=== PATIENT | male | born 1975 | race Caucasian/White ===

== ENCOUNTER 2018-03-14 17:49 | Emergency (ER) | payer SELFPAY ==
[~2018-03-14] VITALS: Ht 180.3 cm; Wt 86.2 kg
[2018-03-14 18:30] LABS: BILIRUBIN,URINE NEGATIVE (NEG); CLARITY,URINE CLOUDY; COLOR,URINE YELLOW; NITRITE,URINE NEGATIVE (NEG); PROTEIN,URINE NEGATIVE (NEG-TRACE); UROBILINOGEN,URINE 0.2 mg/dL (0.2 mg/dL)
[2018-03-14 18:55] LABS: BACTERIA,URINE FEW /HPF (0-FEW); RBC,URINE 0 /HPF (0-2); SQUAMOUS EPITHELIAL CELL,UR OCC /LPF; WBC,URINE OCC /HPF (0-4)
[2018-03-14] MEDS: KETOROLAC 60 MG/2 ML INJ. IM ONE (20:07)
[2018-03-14] MEDS: DEXAMETHASONE 4 MG TABLET PO ONE (20:07)
[2018-03-14] MEDS ORDERED: IBUP-1007 PO (20:41)
--- NOTE | 2018-03-14 20:41 | PHYS DOC ---
Past Medical History Past Medical History: DVT Past Surgical History: Other Additional Past Surgical Histo: R HAND TENDONS REPAIR Additional Information: 3 TO 4 PPD, IF HAS THE MONEY Alcohol Use: None Drug Use: None Adult General Chief Complaint Chief Complaint: BACK PAIN OR INJURY HPI HPI Patient is a 42 year old male who presents with wearing a 192lb back pack with hiking and tripping over a log and fall into a tree 3 days ago. Review of Systems Review of Systems Constitutional: Denies fever or chills [] Eyes: Denies change in visual acuity, redness, or eye pain [] HENT: Denies nasal congestion or sore throat [] Respiratory: Denies cough or shortness of breath [] Cardiovascular: No additional information not addressed in HPI [] GI: Denies abdominal pain, nausea, vomiting, bloody stools or diarrhea [] : Denies dysuria or hematuria [] Musculoskeletal: Lumbar back pain with sharp tingling that goes down the right leg. Denies back pain or joint pain [] Integument: Denies rash or skin lesions [] Neurologic: Denies headache, focal weakness or sensory changes [] Endocrine: Denies polyuria or polydipsia [] All other systems were reviewed and found to be within normal limits, except as documented in this note. Current Medications Current Medications Current Medications Medications (Trade) Dose Ordered Sig/[facility] Start Time Stop Time Status Last Admin Dose Admin Dexamethasone (Decadron) 4 mg 1X ONCE 03/14/18 20:00 03/14/18 20:01 DC 03/14/18 20:07 4 MG Ketorolac Tromethamine (Toradol Im) 60 mg 1X ONCE 03/14/18 20:00 03/14/18 20:01 DC 03/14/18 20:07 60 MG Allergies Allergies Allergies Coded Allergies Type Severity Reaction Last Updated Verified Latex, Natural Rubber Allergy Intermediate 03/14/18 Yes Penicillins Allergy Intermediate 03/14/18 Yes Sulfa (Sulfonamide Antibiotics) Allergy Intermediate 03/14/18 Yes Physical Exam Physical Exam Constitutional: Well developed, well nourished, no acute distress, non-toxic appearance. [] HENT: Normocephalic, atraumatic, bilateral external ears normal, oropharynx moist, no oral exudates, nose normal. [] Eyes: PERRLA, EOMI, conjunctiva normal, no discharge. [] Neck: Normal range of motion, no tenderness, supple, no stridor. [] Cardiovascular:Heart rate regular rhythm, no murmur [] Lungs & Thorax: Bilateral breath sounds clear to auscultation [] Abdomen: Bowel sounds normal, soft, no tenderness, no masses, no pulsatile masses. [] Skin: Warm, dry, no erythema, no rash. [] Back: Lumbar tenderness to bilateral sides of lumbar spine. No tenderness, no CVA tenderness. [] Extremities: No tenderness, no cyanosis, no clubbing, ROM intact, no edema. [] Neurologic: Alert and oriented X 3, normal motor function, normal sensory function, no focal deficits noted. [] Psychologic: Affect normal, judgement normal, mood normal. [] Current Patient Data Vital Signs Vital Signs Date Time Temp Pulse Resp B/P (MAP) Pulse Ox O2 Delivery O2 Flow Rate FiO2 03/14/18 21:00 106 18 138/88 (105) 96 Room Air 03/14/18 19:40 98.7 98.7 Lab Values Laboratory Tests Test 03/14/18 18:23 Urine Collection Type Void Urine Color Yellow Urine Clarity Cloudy Urine pH 6.0 Urine Specific Gerber 1.010 Urine Protein Negative mg/dL (NEG-TRACE) Urine Glucose (UA) Negative mg/dL (NEG) Urine Ketones (Stick) Negative mg/dL (NEG) Urine Blood Negative (NEG) Urine Nitrite Negative (NEG) Urine Bilirubin Negative (NEG) Urine Urobilinogen Dipstick 0.2 mg/dL (0.2 mg/dL) Urine Leukocyte Esterase Negative (NEG) Urine RBC 0 /HPF (0-2) Urine WBC Occ /HPF (0-4) Urine Squamous Epithelial Cells Occ /LPF Urine Bacteria Few /HPF (0-FEW) EKG EKG [] Radiology/Procedures Radiology/Procedures lumbar[] Impressions: No acute findings Course & Med Decision Making Course & Med Decision Making Patient is a 42 year old male who presents with wearing a 192lb back pack with hiking and tripping over a log and fall into a tree 3 days ago. Upon examination patient has bilateral lower back tenderness to the sides of his lumbar spine. Patient states that the pain shoots sharp tingling pain down his right leg. Patient states the only way he can get comfortable is with laying flat on his back. Patient rates his pain a 8/10. Patient sates he is allergic to PCN, Sulfa, And Latex. Patietn is given Toradol IM and Dexamethasone in the ED. Patient lumbar x-ray is normal and was read by Dr Ambrocio. Patient is to take ibuprofen at home for pain and to follow up with his primary care. [] Dragon Disclaimer Dragon Disclaimer This electronic medical record was generated, in whole or in part, using a voice recognition dictation system. Departure Departure Impression: Primary Impression: Sciatica Additional Impression: Sciatica associated with disorder of lumbar spine Disposition: HOME, SELF-CARE Condition: STABLE Referrals: NO PCP (PCP) Patient Instructions: Sciatica Additional Instructions: Take Ibuprofen for pain. Follow up with Primary care. Scripts Ibuprofen (IBUPROFEN) 600 Mg Tablet 600 MG PO PRN Q6HRS PRN for INFLAMMATION for 5 Days, TAB Prov: NIKKO ROSSI APRN 03/14/18 Problem Qualifiers Primary Impression: Sciatica Laterality: right Qualified Codes: M54.31 - Sciatica, right side NIKKO ROSSI APRN Mar 14, 2018 20:41
[2018-03-14 21:00] VITALS: BP 138/88
--- NOTE | 2018-03-14 23:32 | RAD ---
Indication: Trauma. Back pain. TECHNIQUE: 3 views of the lumbar spine COMPARISON: None FINDINGS: There are 5 lumbar lumbar spine is in normal anatomic alignment. No compression deformities. No intervertebral disc space narrowing or facet arthropathy. SI joints within normal limits. IMPRESSION: No compression deformities. Electronically signed by: Oseas Choi DO (03/14/2018 11:29 PM) [facility]
[2018-03-15] MEDS ORDERED: NAPR-514 PO (14:00)
[2018-03-15] MEDS ORDERED: ORPH100T PO (14:00)
== END 2018-03-14 21:00 | disposition home or self-care (01) ==
LOC: ER 17:49
DX: M54.41 Lumbago with sciatica, right side (principal); R20.2 Paresthesia of skin; F17.200 Nicotine dependence, unspecified, uncomplicated; Z86.718 Personal history of other venous thrombosis and embolism; Z88.0 Allergy status to penicillin; Z88.2 Allergy status to sulfonamides; Z91.040 Latex allergy status
CPT/HCPCS: 72100; 81001; 96372; 99285; J1885; J8540

== ENCOUNTER 2018-03-15 12:51 | Emergency (ER) | payer SELFPAY ==
[~2018-03-15] VITALS: Ht 180.3 cm; Wt 86.2 kg
[~2018-03-15 12:51] MED LIST: IBUP-1007 PO
[2018-03-15 13:05] VITALS: BP 14/87
[2018-03-15] MEDS: ORPHENADRINE CITRATE 60 MG/2 ML VIAL. IM ONE (13:49)
[2018-03-15] MEDS: KETOROLAC 60 MG/2 ML INJ. IM ONE (13:50)
[2018-03-15] MEDS ORDERED: ORPH100T PO (14:00)
[2018-03-15] MEDS ORDERED: NAPR-514 PO (14:00)
--- NOTE | 2018-03-15 14:01 | PHYS DOC ---
Past Medical History Past Medical History: DVT Past Surgical History: Other Additional Past Surgical Histo: R HAND TENDONS REPAIR Alcohol Use: None Drug Use: None Adult General Chief Complaint Chief Complaint: LOWER BACK PAIN OR INJURY HPI HPI Patient is a 42 year old [f__sex] who presents with [] Review of Systems Review of Systems Constitutional: Denies fever or chills [] Eyes: Denies change in visual acuity, redness, or eye pain [] HENT: Denies nasal congestion or sore throat [] Respiratory: Denies cough or shortness of breath [] Cardiovascular: No additional information not addressed in HPI [] GI: Denies abdominal pain, nausea, vomiting, bloody stools or diarrhea [] : Denies dysuria or hematuria [] Musculoskeletal: Denies back pain or joint pain [] Integument: Denies rash or skin lesions [] Neurologic: Denies headache, focal weakness or sensory changes [] Endocrine: Denies polyuria or polydipsia [] All other systems were reviewed and found to be within normal limits, except as documented in this note. Current Medications Current Medications Current Medications Medications (Trade) Dose Ordered Sig/Dustin Start Time Stop Time Status Last Admin Dose Admin Ketorolac Tromethamine (Toradol Im) 30 mg 1X ONCE 03/15/18 13:30 03/15/18 13:31 DC 03/15/18 13:50 30 MG Orphenadrine Citrate (Norflex) 60 mg 1X ONCE 03/15/18 13:30 03/15/18 13:31 DC 03/15/18 13:49 60 MG Allergies Allergies Allergies Coded Allergies Type Severity Reaction Last Updated Verified Latex, Natural Rubber Allergy Intermediate 03/14/18 Yes Penicillins Allergy Intermediate 03/14/18 Yes Sulfa (Sulfonamide Antibiotics) Allergy Intermediate 03/14/18 Yes Physical Exam Physical Exam Constitutional: Well developed, well nourished, no acute distress, non-toxic appearance. [] HENT: Normocephalic, atraumatic, bilateral external ears normal, oropharynx moist, no oral exudates, nose normal. [] Eyes: PERRLA, EOMI, conjunctiva normal, no discharge. [] Neck: Normal range of motion, no tenderness, supple, no stridor. [] Cardiovascular:Heart rate regular rhythm, no murmur [] Lungs & Thorax: Bilateral breath sounds clear to auscultation [] Abdomen: Bowel sounds normal, soft, no tenderness, no masses, no pulsatile masses. [] Skin: Warm, dry, no erythema, no rash. [] Back: No tenderness, no CVA tenderness. [] Extremities: No tenderness, no cyanosis, no clubbing, ROM intact, no edema. [] Neurologic: Alert and oriented X 3, normal motor function, normal sensory function, no focal deficits noted. [] Psychologic: Affect normal, judgement normal, mood normal. [] Current Patient Data Vital Signs Vital Signs Date Time Temp Pulse Resp B/P (MAP) Pulse Ox O2 Delivery O2 Flow Rate FiO2 03/15/18 13:05 98.5 109 18 14/87 (63) 97 Room Air 98.5 EKG EKG [] Radiology/Procedures Radiology/Procedures [] Course & Med Decision Making Course & Med Decision Making Pertinent Labs and Imaging studies reviewed. (See chart for details) [] Dragon Disclaimer Dragon Disclaimer This electronic medical record was generated, in whole or in part, using a voice recognition dictation system. Departure Departure Impression: Primary Impression: Sciatica Disposition: HOME, SELF-CARE Condition: STABLE Referrals: NO PCP (PCP) Patient Instructions: Sciatica, [id number] Additional Instructions: Fill prescriptions and use as directed. Activity as tolerated. Follow-up with your primary care doctor in 1-2 days. Return to the emergency room if your symptoms worsen. Scripts Naproxen (NAPROXEN) 500 Mg Tablet 1 TAB PO BID for 10 Days, #20 TAB 0 Refills Prov: ANTONINO QUIROGA APRN 03/15/18 Orphenadrine Citrate (ORPHENADRINE CITRATE) 100 Mg Tablet.er 1 TAB PO BID for 10 Days, #20 TAB 0 Refills Prov: ANTONINO QUIROGA APRN 03/15/18 Problem Qualifiers Primary Impression: Sciatica Laterality: right Qualified Codes: M54.31 - Sciatica, right side ANTONINO QUIROGA APRN Mar 15, 2018 14:01
== END 2018-03-15 14:25 | disposition home or self-care (01) ==
LOC: ER 12:51
DX: M54.31 Sciatica, right side (principal); Z86.718 Personal history of other venous thrombosis and embolism; Z88.0 Allergy status to penicillin; Z88.2 Allergy status to sulfonamides; Z91.040 Latex allergy status
CPT/HCPCS: 96372; 99284; J1885; J2360

== ENCOUNTER 2019-04-23 18:11 | Emergency (ER) | payer SELFPAY ==
[~2019-04-23] VITALS: Ht 180.3 cm; Wt 86.2 kg
[~2019-04-23 18:11] MED LIST changes: +NAPR-514 PO; +ORPH100T PO
[2019-04-23] MEDS ORDERED: AZIT250T PO (18:50)
--- NOTE | 2019-04-23 18:50 | PHYS DOC ---
Past Medical History Past Medical History: Bipolar, DVT Past Surgical History: Other Additional Past Surgical Histo: R HAND TENDONS REPAIR Alcohol Use: None Drug Use: None Adult General Chief Complaint Chief Complaint: SORE THROAT [facility] HPI Patient is a 43 year old male who presents with complaining of sore throat. Patient states he woke up this morning he has had sore throat since he woke up this morning worse with swallowing. Patient complaining of marked subjective fever without headache, sick contact, nasal congestion and cough and shortness of breath. Patient denies nausea and vomiting and myalgia. Patient states he took ibuprofen at home and his pain is getting better. Review of Systems Review of Systems Constitutional: Denies chills, reports subjective fever [] Eyes: Denies change in visual acuity, redness, or eye pain [] HENT: Denies nasal congestion, reports sore throat [] Respiratory: Denies cough or shortness of breath [] Cardiovascular: No additional information not addressed in HPI [] GI: Denies abdominal pain, nausea, vomiting, bloody stools or diarrhea [] : Denies dysuria or hematuria [] Musculoskeletal: Denies back pain or joint pain [] Integument: Denies rash or skin lesions [] Neurologic: Denies headache, focal weakness or sensory changes [] Endocrine: Denies polyuria or polydipsia [] All other systems were reviewed and found to be within normal limits, except as documented in this note. Allergies Allergies Allergies Coded Allergies Type Severity Reaction Last Updated Verified Latex, Natural Rubber Allergy Intermediate 03/14/18 Yes Penicillins Allergy Intermediate 03/14/18 Yes Sulfa (Sulfonamide Antibiotics) Allergy Intermediate 03/14/18 Yes Physical Exam Physical Exam Constitutional: Well developed, well nourished, mild distress, non-toxic appearance. [] HENT: Normocephalic, atraumatic. Tympanic membrane normal, oral mucosa is moist, mild erythema and erythema of bilateral without exudate Eyes: PERRLA, EOMI, conjunctiva normal, no discharge. [] Neck: Normal range of motion, no tenderness, supple, no stridor. [] Cardiovascular:Heart rate regular rhythm, no murmur [] Lungs & Thorax: Bilateral breath sounds clear to auscultation [] Extremities: No tenderness, no cyanosis, no clubbing, ROM intact, no edema. [] Neurologic: Alert and oriented X 3, no focal deficits noted. [] Psychologic: Affect normal, judgement normal, mood normal. [] EKG EKG [] Radiology/Procedures Radiology/Procedures [] Course & Med Decision Making Course & Med Decision Making discharge: I've spoken with the patient and/or caregivers. I've explained the patient's condition, diagnosis and treatment plan based on information available to me at this time. I've answered the patient's and/or caregivers questions and addressed any concerns. The patient and/or caregivers have a good understanding the patient's diagnosis, condition and treatment plan as can be expected at this point. Vital signs have been stabilized. The patient's condition is stable for discharge from the emergency department. The patient will pursue further outpatient evaluation with her primary care provider or other designated consulting physician as outlined in the discharge instructions. Patient and/or caregivers are agreeable to this plan of care and follow-up instructions have been explained in detail. The patient and/or caregivers have received these instructions in written format and expressed understanding of these discharge instructions. The patient and her caregivers are aware that if any significant change in condition or worsening of symptoms should prompt him to immediately return to this of the closest emergency depa rtment. If an emergent department is not readily available I would encourage him to call 911. Michellon Disclaimer Michellon Disclaimer This electronic medical record was generated, in whole or in part, using a voice recognition dictation system. Departure Departure Impression: Primary Impression: Acute pharyngitis Disposition: HOME, SELF-CARE (at 1848) Condition: STABLE Referrals: NO PCP (PCP) Patient Instructions: Viral and Bacterial Pharyngitis Additional Instructions: Drink plenty of liquids Follow-up with your primary care physician in 3-5 days Return to ER if not getting better Continue home ibuprofen as needed for pain Scripts Azithromycin (ZITHROMAX) 250 Mg Tablet 1 PKG PO UD for infection, #1 PKG Prov: TRACI SHEIKH MD 04/23/19 Problem Qualifiers Primary Impression: Acute pharyngitis Pharyngitis/tonsillitis etiology: unspecified etiology Qualified Codes: J02.9 - Acute pharyngitis, unspecified TRACI SHEIKH MD Apr 23, 2019 18:50
[2019-04-23 18:57] VITALS: BP 140/93
== END 2019-04-23 19:02 | disposition home or self-care (01) ==
LOC: ER 18:11
DX: J02.9 Acute pharyngitis, unspecified (principal); R50.9 Fever, unspecified; R06.02 Shortness of breath; R09.81 Nasal congestion; F31.9 Bipolar disorder, unspecified; Z88.0 Allergy status to penicillin; Z88.2 Allergy status to sulfonamides; Z91.040 Latex allergy status
CPT/HCPCS: 99283

== ENCOUNTER 2019-08-20 10:15 | Emergency (ER) | payer SELFPAY ==
[~2019-08-20] VITALS: Ht 180.3 cm; Wt 91.4 kg
[~2019-08-20 10:15] MED LIST changes: +AZIT250T PO
[2019-08-20 10:17] VITALS: BP 133/73
[2019-08-20] MEDS ORDERED: HYDROcodone/APAP 5/325MG 1 TAB TABLET PO ONE (10:30)
[2019-08-20] MEDS ORDERED: DEXAMETHASONE 4 MG TABLET PO SCH (10:30)
[2019-08-20] MEDS ORDERED: AZIT250T6 PO (10:34)
--- NOTE | 2019-08-20 10:34 | PHYS DOC ---
Past Medical History Past Medical History: Bipolar, DVT Past Surgical History: Other Additional Past Surgical Histo: R HAND TENDONS REPAIR Smoking Status: Current Every Day Smoker Alcohol Use: None Drug Use: None Adult General Chief Complaint Chief Complaint: FEVER HPI HPI Patient is a 44 year old male who presents with 2 days of a sore throat, fever and right ear pain. Patient rates his pain a 10 out of 10. Review of Systems Review of Systems Constitutional: fever or chills [] HENT: Denies nasal congestion. +sore throat and ear pain. [] All other systems were reviewed and found to be within normal limits, except as documented in this note. Current Medications Current Medications Current Medications Medications (Trade) Dose Ordered Sig/Dsutin Start Time Stop Time Status Last Admin Dose Admin Acetaminophen/ Hydrocodone Bitart (Lortab 5/325) 1 tab 1X ONCE 08/20/19 10:30 08/20/19 10:31 DC Dexamethasone (Decadron) 8 mg 1X 08/20/19 10:30 Allergies Allergies Allergies Coded Allergies Type Severity Reaction Last Updated Verified Latex, Natural Rubber Allergy Intermediate 03/14/18 Yes Penicillins Allergy Intermediate 03/14/18 Yes Sulfa (Sulfonamide Antibiotics) Allergy Intermediate 03/14/18 Yes Physical Exam Physical Exam Constitutional: Well developed, well nourished, no acute distress, non-toxic appearance. [] HENT: Normocephalic, atraumatic, bilateral external ears normal, oropharynx moist, no oral exudates, nose normal. Right ear reddened. Throat red with 1+ bilateral tonsils. [] Eyes: PERRLA, EOMI, conjunctiva normal, no discharge. [] Neck: Normal range of motion, no tenderness, supple, no stridor. [] Cardiovascular:Heart rate regular rhythm, no murmur [] Lungs & Thorax: Bilateral breath sounds clear to auscultation [] Abdomen: Bowel sounds normal, soft, no tenderness, no masses, no pulsatile masses. [] Skin: Warm, dry, no erythema, no rash. [] Back: No tenderness, no CVA tenderness. [] Extremities: No tenderness, no cyanosis, no clubbing, ROM intact, no edema. [] Neurologic: Alert and oriented X 3, normal motor function, normal sensory fun ction, no focal deficits noted. [] Psychologic: Affect normal, judgement normal, mood normal. [] Current Patient Data Vital Signs Vital Signs Date Time Temp Pulse Resp B/P (MAP) Pulse Ox O2 Delivery O2 Flow Rate FiO2 08/20/19 10:17 97.8 96 19 133/73 (93) 99 Room Air 97.8 EKG EKG [] Radiology/Procedures Radiology/Procedures [] Course & Med Decision Making Course & Med Decision Making Pertinent Labs and Imaging studies reviewed. (See chart for details) Alert and oriented. Speaks in full clear sentences. Tonsils are 1+ swollen without exudates and there is redness. Patient would hardly let me examine the right ear due to pain. Even touching the ear causes him a lot of pain. From what I can see from examining the ear there was redness but patient Moving away from me. Lungs are clear to auscultation all lobes. Vital signs within normal limits . Patient states he last took ibuprofen this morning. Denies abdominal pain, chest pain, cough, nausea, vomiting, diarrhea, chest pain, soa, dizziness, headache, nasal congestion. Uvula midline. [] Dragon Disclaimer Dragon Disclaimer This electronic medical record was generated, in whole or in part, using a voice recognition dictation system. Departure Departure Impression: Primary Impression: Otitis media Disposition: 01 HOME, SELF-CARE Condition: STABLE Referrals: NO PCP (PCP) Patient Instructions: Otitis Media, Adult Additional Instructions: Follow up with primary care provider. Take medications as prescribed. Continue taking Ibuprofen or Tylenol. Scripts Azithromycin (AZITHROMYCIN TABLET) 250 Mg Tablet 1 PKG PO UD for 5 Days, #6 TAB 0 Refills 2 the first day followed by 1 for days 2-5 Prov: NIKKO ROSSI APRN 08/20/19 Problem Qualifiers Primary Impression: Otitis media Otitis media type: suppurative Chronicity: acute Laterality: right Recurrence: non-recurrent Spontaneous tympanic membrane rupture: without spontaneous rupture Qualified Codes: H66.001 - Acute suppurative otitis media without spontaneous rupture of ear drum, right ear NIKKO ROSSI [employer] Aug 20, 2019 10:34
== END 2019-08-20 10:48 | disposition home or self-care (01) ==
LOC: ER 10:15
DX: H66.001 Acute suppurative otitis media without spontaneous rupture of ear drum, right ear (principal); R50.9 Fever, unspecified; F31.9 Bipolar disorder, unspecified; F17.200 Nicotine dependence, unspecified, uncomplicated; Z86.718 Personal history of other venous thrombosis and embolism; Z98.890 Other specified postprocedural states; Z91.040 Latex allergy status; Z88.0 Allergy status to penicillin; Z88.2 Allergy status to sulfonamides
CPT/HCPCS: 99283; J8540

== ENCOUNTER 2019-10-31 20:25 | Emergency (ER) | payer SELFPAY ==
[~2019-10-31] VITALS: Ht 180.3 cm; Wt 87.7 kg
[~2019-10-31 20:25] MED LIST changes: +AZIT250T6 PO
[2019-10-31] MEDS ORDERED: LIDOCAINE 1%/EPI 1:100,000 20 ML VIAL. INJ ONE (20:45)
[2019-10-31] MEDS ORDERED: CEPH-263 PO (21:09)
[2019-10-31] MEDS ORDERED: TRAM50TA PO (21:09)
--- NOTE | 2019-10-31 21:16 | PHYS DOC ---
Past Medical History Past Medical History: Bipolar, DVT, Other Additional Past Medical Histor: PTSD Past Surgical History: Other Additional Past Surgical Histo: R HAND TENDONS REPAIR Smoking Status: Current Every Day Smoker Alcohol Use: None Drug Use: None Adult General Chief Complaint Chief Complaint: LACERATION/AVULSION [facility] HPI Patient is a 44 year old right-handed male with history of PTSD and bipolar disorder presents with laceration to left index fingertip. 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 Patient has a 2 cm full thickness curvilinear laceration over his left index finger pad. There is no joint involvement. Tetanus is up-to-date. Injury occurred just prior to ED arrival.[] Review of Systems Review of Systems ROS as per HPI All other systems were reviewed and found to be within normal limits, except as documented in this note. Current Medications Current Medications Current Medications Medications (Trade) Dose Ordered Sig/Dustin Start Time Stop Time Status Last Admin Dose Admin Cephalexin HCl (Keflex) 500 mg 1X STAT 10/31/19 21:09 10/31/19 21:10 UNV Lidocaine/ Epinephrine (LIDOCAINE 1%-EPI 1:100,000 Multi-Dose) 20 ml 1X ONCE 10/31/19 20:45 10/31/19 20:46 DC Allergies Allergies Allergies Coded Allergies Type Severity Reaction Last Updated Verified Latex, Natural Rubber Allergy Intermediate 03/14/18 Yes Penicillins Allergy Intermediate 03/14/18 Yes Sulfa (Sulfonamide Antibiotics) Allergy Intermediate 03/14/18 Yes Physical Exam Physical Exam Constitutional: Well developed, well nourished, no acute distress, non-toxic appearance. [] HENT: Normocephalic, atraumatic, bilateral external ears normal, oropharynx moist, no oral exudates, nose normal. [] Extremities: Left index finger, 2 cm full thickness curvilinear laceration through finger pad, no joint involvement. Bleeding controlled. Wound is clean. [] Neurologic: Alert and oriented X 3, normal motor function, normal sensory function, no focal deficits noted. [] Psychologic: Affect normal, judgement normal, mood normal. [] EKG EKG [] Radiology/Procedures Radiology/Procedures [Laceration repair procedure note. Left Index finger, a finger tourniquet was placed and the wound was exploded and was clean. It was irrigated copiously with high pressure normal saline. 3 mL's of 1% lidocaine with epinephrine was injected into the margins the wound. Upon adequate level of anesthesia, #10, 4-0 Ethilon sutures were placed over the wound margins to close with close approximation. Wound was then bandaged. Course & Med Decision Making Course & Med Decision Making Pertinent Labs and Imaging studies reviewed. (See chart for details) [Typical wound care instructions with work comp referral provided. Return precautions reviewed. Patient verbalizes understanding treatment discharge instructions prior to departure]] Dragon Disclaimer Dragon Disclaimer This electronic medical record was generated, in whole or in part, using a voice recognition dictation system. Departure Departure Impression: Primary Impression: Laceration of left index finger Disposition: HOME/RESIDENCE PRIOR TO ADM Condition: GOOD Patient Instructions: Laceration Care, Adult, [id number] Additional Instructions: Please keep wound clean, dry and covered. Take Tylenol for pain and tramadol and Keflex as directed. Contact your employer for work comp physician follow up. Sutures will need to be removed in 7-10 days. Return to the ED if signs of infection. Scripts Cephalexin (KEFLEX) 250 Mg Capsule 1 CAP PO TID for 7 Days, #15 CAP 0 Refills Prov: LETICIA CALLAHAN DO 10/31/19 Tramadol Hcl (TRAMADOL HCL) 50 Mg Tablet 50 MG PO Q6H PRN for PAIN for 3 Days, #15 TAB 0 Refills Prov: LETICIA CALLAHAN DO 10/31/19 LETICIA CALLAHAN DO Oct 31, 2019 21:16
[2019-10-31] MEDS ORDERED: CEPHALEXIN 250 MG CAPSULE. PO ONE (21:30)
[2019-10-31 21:55] VITALS: BP 139/88
== END 2019-10-31 21:40 | disposition home or self-care (01) ==
LOC: ER 20:25
DX: S61.211A Laceration without foreign body of left index finger without damage to nail, initial encounter (principal); F31.9 Bipolar disorder, unspecified; F17.200 Nicotine dependence, unspecified, uncomplicated; F43.10 Post-traumatic stress disorder, unspecified; Z91.040 Latex allergy status; Z88.1 Allergy status to other antibiotic agents; Z88.2 Allergy status to sulfonamides; Z98.890 Other specified postprocedural states; Z86.718 Personal history of other venous thrombosis and embolism; W26.0XXA Contact with knife, initial encounter; Y93.89 Activity, other specified; Y92.89 Other specified places as the place of occurrence of the external cause; Y99.0 Civilian activity done for income or pay
CPT/HCPCS: 12001; 99283; J3490

== ENCOUNTER 2020-02-11 14:00 | Emergency (ER) | payer SELFPAY ==
[~2020-02-11] VITALS: Ht 180.3 cm; Wt 85.0 kg
[~2020-02-11 14:00] MED LIST changes: +CEPH-263 PO; +TRAM50TA PO
[2020-02-11 14:24] VITALS: BP 135/84
[2020-02-11] MEDS ORDERED: KETOROLAC 30 MG/ML VIAL. IM ONE (14:30)
--- NOTE | 2020-02-11 14:35 | PHYS DOC ---
Past Medical History Past Medical History: Bipolar, DVT, Other Additional Past Medical Histor: PTSD, LLE VENOUS INSUFFICIENCY Past Surgical History: Other Additional Past Surgical Histo: R HAND TENDONS REPAIR, SKULL FRACTURE Smoking Status: Current Every Day Smoker Alcohol Use: None Drug Use: None General Adult EDM: Chief Complaint: LOWER EXT PAIN HPI: HPI: Patient is a 44 year old with a 2-day history of right anterior tibia pain. Patient has a history of DVTs in the past and currently takes aspirin. Patient was at work and noticed severe right lower tibial anterior pain. Pain is worse with movement of the right ankle was specifically plantar flexion. Pain is nonradiating and is severe at its worst and moderate at rest. Patient denies any fever. No trouble breathing or chest pain. The pain is described as a stabbing burning pain Review of Systems: Review of Systems: Constitutional: Denies fever or chills. [] Eyes: Denies change in visual acuity. [] HENT: Denies nasal congestion or sore throat. [] Respiratory: Denies cough or shortness of breath. [] Cardiovascular: Denies chest pain or edema. [] GI: Denies abdominal pain, nausea, vomiting, bloody stools or diarrhea. [] : Denies dysuria. [] Musculoskeletal: Complains of right leg pain Integument: Complains of mild erythema to the right anterior tibia Neurologic: Denies headache, focal weakness or sensory changes. [] Endocrine: Denies polyuria or polydipsia. [] Lymphatic: Denies swollen glands. [] Psychiatric: Denies depression or anxiety. [] Heart Score: Risk Factors: Risk Factors: DM, Current or recent (<one month) smoker, HTN, HLP, family history of CAD, obesity. Risk Scores: Score 0 - 3: 2.5% MACE over next 6 weeks - Discharge Home Score 4 - 6: 20.3% MACE over next 6 weeks - Admit for Clinical Observation Score 7 - 10: 72.7% MACE over next 6 weeks - Early Invasive Strategies Current Medications: Current Medications Medications (Trade) Dose Ordered Sig/Dustin Start Time Stop Time Status Last Admin Dose Admin Ketorolac Tromethamine (Toradol 30mg Vial) 30 mg 1X ONCE 02/11/20 14:30 02/11/20 14:31 DC Allergies: Allergies: Allergies Coded Allergies Type Severity Reaction Last Updated Verified Penicillins Allergy Severe ANAPHYLAXIS 10/31/19 Yes Latex, Natural Rubber Allergy Intermediate 03/14/18 Yes Sulfa (Sulfonamide Antibiotics) Allergy Intermediate 03/14/18 Yes Physical Exam: PE: Constitutional: Well developed, well nourished, no acute distress, non-toxic appearance. HENT: No trismus, external ears normal Eyes: Conjunctiva clear, EOMI Neck: Normal range of motion, no tenderness, supple, no stridor. 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 Pain with range of motion of the ankle specifically plantar flexion. Neurovascular intact distally. No significant calf swelling. Neurologic: Alert and oriented X 3, normal motor function, , no focal deficits noted. Psychologic: Affect normal, judgement normal, mood normal. Current Patient Data: Vital Signs: Vital Signs Date Time Temp Pulse Resp B/P (MAP) Pulse Ox O2 Delivery O2 Flow Rate FiO2 02/11/20 14:24 97.8 86 18 135/84 (101) 99 Room Air 97.8 EKG: EKG: [] Radiology/Procedures: Radiology/Procedures: [][address] [id number] IMAGING REPORT Signed PATIENT: DORON QUILES ACCOUNT: [id number] : 1975 LOCATION: ER AGE: 44 SEX: M EXAM STATUS: REG ER ORD. PHYSICIAN: JOEL SINGH MD REASON: rle pain PROCEDURE: TIBIA FIBULA RIGHT TIBIA FIBULA RIGHT History: Reason: rle pain / Spl. Instructions: / History: Technique: 2 views right tibia and fibula. Comparison: None. Findings: Normal alignment. No fracture. Impression: 1. No acute osseous abnormality. Electronically signed by: Rocael Arguello DO (02/11/2020 3:12 PM) [facility] DICTATED and SIGNED BY: ROCAEL ARGUELLO DO DATE: 02/11/[address] [address] IMAGING REPORT Signed PATIENT: DORON QUILES ACCOUNT: [id number] : 1975 LOCATION: ER AGE: 44 SEX: M EXAM STATUS: REG ER ORD. PHYSICIAN: JOEL SINGH MD REASON: rle pain, hx of dvt PROCEDURE: VENOUS LOWER EXTREMITY RIGHT Right lower extremity venous Doppler dated 02/11/2020. No comparison available. Clinical data indication: Pain. History of DVT. FINDINGS: Grayscale, color-flow and spectral waveform analysis performed to include the deep venous system of the right lower extremity. There is normal compressibility, phasicity and augmentation of flow throughout. No filling defects are seen. IMPRESSION: No evidence of right lower extremity deep vein thrombosis. Electronically signed by: Timothy Narayanan MD (02/11/2020 3:36 PM) [id number] DICTATED and SIGNED BY: TIMOTHY NARAYANAN MD DATE: 02/11/20 1536 Course & Med Decision Making: Course & Med Decision Making Pertinent Labs and Imaging studies reviewed. (See chart for details) [] 44-year-old male presents with atraumatic right leg pain upon initial evaluation I told him that we are been doing ultrasound with his history of DVTs to make sure and have a clot and x-ray. 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 When I went back into the room he was upset that we did imaging even though I told him exactly why we do not do it upon initial evaluation. Patient later apologized for being rude to the hospital staff. Most likely patient has tendinitis in his right leg or cellulitis. He will be treated with anti-inflammatories and antibiotics and follow-up with orthopedist. Patient stable for discharge outpatient follow-up. Michellon Disclaimer: Corrie Disclaimer: This electronic medical record was generated, in whole or in part, using a voice recognition dictation system. Departure Departure Impression: Primary Impression: Right leg pain Additional Impression: Tendinitis of right ankle Disposition: HOME, SELF-CARE Condition: STABLE Referrals: NO PCP (PCP) LORIN ULLOA MD 2-3 days Patient Instructions: Tendinitis and Tenosynovitis-SportsMed Additional Instructions: EMERGENCY DEPARTMENT GENERAL DISCHARGE INSTRUCTIONS THANK YOU for coming to [facility] Emergency Department (ED) today and trusting us with your care. We trust that you had a positive experience in our Emergency Department. If you wish to speak to the department Management you can contact the emergency department at . YOUR FOLLOW UP INSTRUCTIONS ARE FOLLOWS: Do you have a private doctor? If you do not have a private doctor, please ask for a resource list of physicians or clinics that may be able to assist you with follow up care. The Emergency Physician has interpreted your x-rays. The X-ray specialist will also review them. If there is a change in the findings you will be notified in 48 hours when at all possible. A lab test or lab culture may have been done, your results will be reviewed and you will be notified if you need a change in treatment. ADDITIONAL INSTRUCTIONS AND INFORMATION Your care today has been supervised by a physician who is specially trained in emergency care. Many problems require more than one evaluation for a complete diagnosis and treatment. We recommend that you schedule your follow up appointment as recommended to ensure complete treatment of your illness or injury. If you are unable to obtain follow up care and continue to have a problem, or if your condition worsens we recommend that you return to the ED. We are not able to safely determine your condition over the phone nor are we able to give sound medical advice over the phone. For these safety reasons, if you call for medical advice we will ask you to come to the ED for further evaluation If you have any questions regarding these discharge instructions please call the ED at . SAFETY INFORMATION In the interest of safety, wellness, and injury prevention; we encourage you to wear your seatbelt, if you smoke; quit smoking, and we encourage your family to use protective helmet for bicycling and other sporting events that present an increased risk for head injury. IF YOUR SYMPTOMS WORSEN OR NEW SYMPTOMS DEVELOP, OR YOU HAVE CONCERNS ABOUT YOUR CONDITION; OR IF YOUR CONDITION WORSENS WHILE YOU ARE WAITING FOR YOUR FOLLOW UP FEROZ OINTMENT; EITHER CONTACT YOUR PRIMARY CARE DOCTOR, THE PHYSICIAN WHOSE NAME AND NUMBER YOU WERE GIVEN, OR RETURN TO THE ED IMMEDIATELY. Scripts Hydrocodone/Apap 5-325 (NORCO 5-325 TABLET) 1 Each Tablet 1-2 EACH PO PRN Q6HRS PRN for PAIN, #15 as needed for pain Prov: SAMANTHA,JOEL MD 02/11/20 Ibuprofen (IBUPROFEN) 600 Mg Tablet 600 MG PO PRN Q6HRS PRN for INFLAMMATION, #30 TAB Prov: JOEL SINGH MD 02/11/20 Doxycycline Monohydrate (DOXYCYCLINE MONOHYDRATE) 100 Mg Capsule 1 CAP PO BID, #20 CAP Prov: JOEL SINGH MD 02/11/20 Justicifation of Admission Dx: Justifications for Admission: Justification of Admission Dx: N/A JOEL SINGH MD Feb 11, 2020 14:35
--- NOTE | 2020-02-11 15:14 | RAD ---
TIBIA FIBULA RIGHT History: Reason: rle pain / Spl. Instructions: / History: Technique: 2 views right tibia and fibula. Comparison: None. Findings: Normal alignment. No fracture. Impression: 1. No acute osseous abnormality. Electronically signed by: Rocael Arguello DO (02/11/2020 3:12 PM) [facility]
--- NOTE | 2020-02-11 15:39 | RAD ---
Right lower extremity venous Doppler dated 02/11/2020. No comparison available. Clinical data indication: Pain. History of DVT. FINDINGS: Grayscale, color-flow and spectral waveform analysis performed to include the deep venous system of the right lower extremity. There is normal compressibility, phasicity and augmentation of flow throughout. No filling defects are seen. IMPRESSION: No evidence of right lower extremity deep vein thrombosis. Electronically signed by: Timothy Narayanan MD (02/11/2020 3:36 PM) [id number]
[2020-02-11] MEDS ORDERED: IBUP-1007 PO (15:57)
[2020-02-11] MEDS ORDERED: DOXY100C14 PO (15:57)
[2020-02-11] MEDS ORDERED: HYDR-3164 PO (15:57)
== END 2020-02-11 17:05 | disposition home or self-care (01) ==
LOC: ER 14:00
DX: M79.671 Pain in right foot (principal); M25.571 Pain in right ankle and joints of right foot; F31.9 Bipolar disorder, unspecified; F17.200 Nicotine dependence, unspecified, uncomplicated; Z98.890 Other specified postprocedural states; Z86.718 Personal history of other venous thrombosis and embolism; Z88.0 Allergy status to penicillin; Z88.2 Allergy status to sulfonamides; Z88.8 Allergy status to other drugs, medicaments and biological substances; Z91.040 Latex allergy status
CPT/HCPCS: 73590; 93971; 96372; 99284; J1885

== ENCOUNTER 2020-05-13 18:13 | Emergency (ER) | payer SELFPAY ==
[~2020-05-13] VITALS: Ht 180.3 cm; Wt 86.3 kg
[~2020-05-13 18:13] MED LIST changes: +DOXY100C14 PO; +HYDR-3164 PO
[2020-05-13 19:00] VITALS: BP 135/84
[2020-05-13] MEDS ORDERED: OLAN5TAB3 PO (19:24)
--- NOTE | 2020-05-13 19:25 | PHYS DOC ---
Past Medical History Past Medical History: Bipolar, DVT, Hypertension, Other Additional Past Medical Histor: PTSD, LLE VENOUS INSUFFICIENCY Past Surgical History: Other Additional Past Surgical Histo: R HAND TENDONS REPAIR, SKULL FRACTURE Smoking Status: Current Every Day Smoker Additional Information: vape Alcohol Use: None Drug Use: None General Adult EDM: Chief Complaint: MEDICATION REFILL HPI: HPI: Patient is a 44 year old male with history of hypertension, bipolar, who presents to the ED today requesting a refill of Zyprexa, he states he ran out of the medication and has an appointment in 9 days to see his provider for refills. Denies any suicidal or homicidal ideations. Review of Systems: Review of Systems: Constitutional: Denies fever or chills. [] Psychiatric: Request for Zyprexa refill Heart Score: Risk Factors: Risk Factors: DM, Current or recent (<one month) smoker, HTN, HLP, family history of CAD, obesity. Risk Scores: Score 0 - 3: 2.5% MACE over next 6 weeks - Discharge Home Score 4 - 6: 20.3% MACE over next 6 weeks - Admit for Clinical Observation Score 7 - 10: 72.7% MACE over next 6 weeks - Early Invasive Strategies Allergies: Allergies: Allergies Coded Allergies Type Severity Reaction Last Updated Verified Penicillins Allergy Severe ANAPHYLAXIS 10/31/19 Yes Latex, Natural Rubber Allergy Intermediate 03/14/18 Yes Sulfa (Sulfonamide Antibiotics) Allergy Intermediate 03/14/18 Yes Physical Exam: PE: Constitutional: Well developed, well nourished, no acute distress, non-toxic appearance. [][] Skin: Warm, dry, no erythema, no rash. [] Back: No tenderness, no CVA tenderness. [] Extremities: No tenderness, no cyanosis, no clubbing, ROM intact, no edema. [] Neurologic: Alert and oriented X 3, normal motor function, normal sensory function, no focal deficits noted. [] Psychologic: Affect normal, judgement normal, mood normal. [] Current Patient Data: Vital Signs: Vital Signs Date Time Temp Pulse Resp B/P (MAP) Pulse Ox O2 Delivery O2 Flow Rate FiO2 05/13/20 19:00 98.6 77 18 135/84 (101) 96 98.6 EKG: EKG: [] Radiology/Procedures: Radiology/Procedures: [] Course & Med Decision Making: Course & Med Decision Making Pertinent Labs and Imaging studies reviewed. (See chart for details) This is a 44-year-old male patient with history of bipolar requesting 90-day supply of Zyprexa, he ran out of the medication. He has an appointment with his provider in 9 days. Has no suicidal homicidal ideation. Prescription given. Dragon Disclaimer: Dragon Disclaimer: This electronic medical record was generated, in whole or in part, using a voice recognition dictation system. Departure Departure Impression: Primary Impression: Medication refill Disposition: 01 DC HOME SELF CARE/HOMELESS Condition: STABLE Referrals: NO PCP (PCP) Follow-up with your doctor in 9 days as scheduled Patient Instructions: Medication Refill, Emergency Department Additional Instructions: Please ensure you follow-up with your own doctor for long-term refill of your Zyprexa. Scripts Olanzapine (ZYPREXA) 5 Mg Tablet 5 MG PO DAILY, #10 TAB Prov: MIRANDA TRUONG APRN 05/13/20 MIRANDA TRUONG APRN May 13, 2020 19:24
== END 2020-05-13 19:30 | disposition home or self-care (01) ==
LOC: ER 18:13
DX: F31.9 Bipolar disorder, unspecified (principal); I10 Essential (primary) hypertension; F17.200 Nicotine dependence, unspecified, uncomplicated; Z86.718 Personal history of other venous thrombosis and embolism; Z98.890 Other specified postprocedural states; Z88.0 Allergy status to penicillin; Z88.2 Allergy status to sulfonamides; Z91.040 Latex allergy status
CPT/HCPCS: 99281

== ENCOUNTER 2020-06-14 23:38 | Emergency (ER) | payer SELFPAY ==
[~2020-06-14] VITALS: Ht 180.3 cm; Wt 86.3 kg
[~2020-06-14 23:38] MED LIST changes: +OLAN5TAB3 PO
[2020-06-15 00:06] VITALS: BP 111/73
[2020-06-15] MEDS ORDERED: OLAN5TAB3 PO (00:31)
--- NOTE | 2020-06-15 00:31 | ED.ADGEN ---
Past Medical History Past Medical History: Bipolar, DVT, Hypertension, Other Additional Past Medical Histor: PTSD, LLE VENOUS INSUFFICIENCY Past Surgical History: Other Additional Past Surgical Histo: R HAND TENDONS REPAIR, SKULL FRACTURE Smoking Status: Current Every Day Smoker Alcohol Use: None Drug Use: None General Adult EDM: Chief Complaint: MEDICATION REFILL HPI: HPI: Patient is 45-year-old male with past medical history of bipolar who presents to the emergency room requesting a refill of his Zyprexa. He ran out 1 week ago and due to work he has been unable to get to the [facility] to get a refill of his medication. He states he feels like he really needs his medication. He denies any homicidal or suicidal ideations. He does not feel that he is manic but does feel that his mental health is getting worse. Review of Systems: Review of Systems: Complete ROS is negative unless otherwise documented in HPI Current Medications: Current Medications Medications (Trade) Dose Ordered Sig/Dustin Start Time Stop Time Status Last Admin Dose Admin Olanzapine (ZyPREXA) 5 mg 1X ONCE 06/15/20 00:45 06/15/20 00:46 DC 06/15/20 00:45 5 MG Allergies: Allergies: Allergies Coded Allergies Type Severity Reaction Last Updated Verified Penicillins Allergy Severe ANAPHYLAXIS 10/31/19 Yes Latex, Natural Rubber Allergy Intermediate 03/14/18 Yes Sulfa (Sulfonamide Antibiotics) Allergy Intermediate 03/14/18 Yes Physical Exam: PE: General: Awake, alert, NAD. Well Nourished, well hydrated. Cooperative HEENT: Atraumatic, EOMI, PERRL, airway patent, moist oral mucosa Neck: Supple, trachea midline Respiratory: CTA bilaterally, normal effort, no wheezing/crackles CV: RRR, no murmur, cap refill <2 GI: Soft, nondistended, nontender, no masses MSK: No obvious deformities Skin: Warm, dry, intact Neuro: A&O x3, speech NL, sensory and motor grossly intact, no focal deficits Psych: Normal affect, normal mood, not suicidal or homicidal Current Patient Data: Vital Signs: Vital Signs Date Time Temp Pulse Resp B/P (MAP) Pulse Ox O2 Delivery O2 Flow Rate FiO2 06/15/20 00:06 97.7 97 18 111/73 (86) 98 Room Air 97.7 EKG: EKG: [] Heart Score: Risk Factors: Risk Factors: DM, Current or recent (<one month) smoker, HTN, HLP, family history of CAD, obesity. Risk Scores: Score 0 - 3: 2.5% MACE over next 6 weeks - Discharge Home Score 4 - 6: 20.3% MACE over next 6 weeks - Admit for Clinical Observation Score 7 - 10: 72.7% MACE over next 6 weeks - Early Invasive Strategies Radiology/Procedures: Radiology/Procedures: [] Course & Med Decision Making: Course & Med Decision Making Pertinent Labs and Imaging studies reviewed. (See chart for details) Patient 45-year-old male who presents to the emergency room requesting a refill of his Zyprexa. He has been on this medication for more than 2 years and has never had any side effects. We will give him a refill as well as a dose here in the emergency room. I recommended that he follow-up with the [facility] as soon as possible. Patient's test results and vitals while in the ED were fully reviewed and discussed with the patient. Patient is stable and at this time does not need admission to the hospital. We have discussed strict return precautions and the importance of following up with their Primary Care Physician. Patient stated understanding and was given an opportunity to ask any questions. Patient is in agreement with plan. Corrie Disclaimer: Corrie Disclaimer: This electronic medical record was generated, in whole or in part, using a voice recognition dictation system. Departure Departure Impression: Primary Impression: Medication refill Disposition: 01 DC HOME SELF CARE/HOMELESS Condition: STABLE Referrals: NO PCP (PCP) Patient Instructions: Manic Depression (Bipolar Disorder) Scripts Olanzapine (ZYPREXA) 5 Mg Tablet 5 MG PO DAILY for 30 Days, #30 TAB 1 Refill Prov: FEROZ MEAD MD 06/15/20 FEROZ MEAD MD Jun 15, 2020 00:31
[2020-06-15] MEDS ORDERED: OLANZapine 5 MG TABLET PO ONE (00:45)
== END 2020-06-15 00:45 | disposition home or self-care (01) ==
LOC: ER 23:38
DX: F31.9 Bipolar disorder, unspecified (principal); I10 Essential (primary) hypertension; F17.200 Nicotine dependence, unspecified, uncomplicated; F43.12 Post-traumatic stress disorder, chronic; Z98.890 Other specified postprocedural states; Z86.718 Personal history of other venous thrombosis and embolism; Z88.0 Allergy status to penicillin; Z88.2 Allergy status to sulfonamides; Z91.040 Latex allergy status
CPT/HCPCS: 99283

== ENCOUNTER 2020-09-15 14:04 | Emergency (ER) | payer SELFPAY ==
[~2020-09-15] VITALS: Ht 180.3 cm; Wt 90.0 kg
[2020-09-15 14:14] VITALS: BP 145/87
--- NOTE | 2020-09-15 15:19 | ED.ADGEN ---
Past Medical History Past Medical History: Bipolar, DVT, Other Additional Past Medical Histor: PTSD, personality disorder Past Surgical History: Other Additional Past Surgical Histo: Tendons in R hand Smoking Status: Current Every Day Smoker Alcohol Use: None Drug Use: None General Adult EDM: Chief Complaint: DRUG ABUSE HPI: HPI: Patient is a 45-year-old male who presents to the emergency room requesting resources as he had a relapse. Patient has a history of drug abuse and states that 2 nights ago he relapsed after being clean for 2 years. Patient denies any other complaints. He has not used since 2 nights ago. Review of Systems: Review of Systems: Complete ROS is negative unless otherwise documented in HPI Allergies: Allergies: Allergies Coded Allergies Type Severity Reaction Last Updated Verified Penicillins Allergy Severe ANAPHYLAXIS 10/31/19 Yes Latex, Natural Rubber Allergy Intermediate 03/14/18 Yes Sulfa (Sulfonamide Antibiotics) Allergy Intermediate 03/14/18 Yes Physical Exam: PE: General: Awake, alert, NAD. Well Nourished, well hydrated. Cooperative HEENT: Atraumatic, EOMI, PERRL, airway patent, moist oral mucosa Neck: Supple, trachea midline Respiratory: CTA bilaterally, normal effort, no wheezing/crackles CV: RRR, no murmur, cap refill <2 GI: Soft, nondistended, nontender, no masses MSK: No obvious deformities Skin: Warm, dry, intact Neuro: A&O x3, speech NL, sensory and motor grossly intact, no focal deficits Psych: Normal affect, normal mood, not suicidal or homicidal Current Patient Data: Vital Signs: Vital Signs Date Time Temp Pulse Resp B/P (MAP) Pulse Ox O2 Delivery O2 Flow Rate FiO2 09/15/20 14:14 98.2 81 16 145/87 (106) 97 Room Air 98.2 EKG: EKG: [] Heart Score: C/O Chest Pain: N/A Risk Factors: Risk Factors: DM, Current or recent (<one month) smoker, HTN, HLP, family history of CAD, obesity. Risk Scores: Score 0 - 3: 2.5% MACE over next 6 weeks - Discharge Home Score 4 - 6: 20.3% MACE over next 6 weeks - Admit for Clinical Observation Score 7 - 10: 72.7% MACE over next 6 weeks - Early Invasive Strategies Radiology/Procedures: Radiology/Procedures: [] Course & Med Decision Making: Course & Med Decision Making Pertinent Labs and Imaging studies reviewed. (See chart for details) Patient is a 45-year-old male who presents to the emergency room requesting resources. The pat team was consulted and presented patient with multiple resources. Patient's test results and vitals while in the ED were fully reviewed and discussed with the patient. Patient is stable and at this time does not need admission to the hospital. We have discussed strict return precautions and the importance of following up with their Primary Care Physician. Patient stated understanding and was given an opportunity to ask any questions. Patient is in agreement with plan. Dragon Disclaimer: Dragon Disclaimer: This electronic medical record was generated, in whole or in part, using a voice recognition dictation system. Departure Departure Impression: Primary Impression: Substance abuse Disposition: 01 DC HOME SELF CARE/HOMELESS Condition: STABLE Referrals: NO PCP (PCP) Patient Instructions: Substance Abuse-Brief FEROZ MEAD MD Sep 15, 2020 15:19
== END 2020-09-15 15:32 | disposition home or self-care (01) ==
LOC: ER 14:04
DX: F19.10 Other psychoactive substance abuse, uncomplicated (principal); F31.9 Bipolar disorder, unspecified; F17.200 Nicotine dependence, unspecified, uncomplicated; Z98.890 Other specified postprocedural states; Z86.718 Personal history of other venous thrombosis and embolism; Z88.0 Allergy status to penicillin; Z88.2 Allergy status to sulfonamides; Z91.040 Latex allergy status
CPT/HCPCS: 99284

== ENCOUNTER 2020-09-27 02:03 | Emergency (ER) | payer SELFPAY ==
[~2020-09-27] VITALS: Ht 180.3 cm; Wt 86.3 kg
[2020-09-27 02:10] VITALS: BP 142/101
--- NOTE | 2020-09-27 02:56 | ED.ADGEN ---
Past Medical History Past Medical History: Anxiety, Bipolar, DVT, Other Additional Past Medical Histor: PTSD, personality disorder Past Surgical History: Other Additional Past Surgical Histo: Tendons in R hand Smoking Status: Current Every Day Smoker Alcohol Use: None Drug Use: None General Adult EDM: Chief Complaint: PSYCH EVALUATION HPI: HPI: Patient is a 45-year-old male with past medical history of bipolar disorder who presents to the emergency room complaining of agitation and anxiety. Patient states he has been out of his Zyprexa for the last week. He states he did use methamphetamines once but since then has been clean. He states his agitation and anxiety have been getting worse. He is requesting his home medication. He denies any homicidal or suicidal ideations. Review of Systems: Review of Systems: Complete ROS is negative unless otherwise documented in HPI Current Medications: Current Medications Medications (Trade) Dose Ordered Sig/Dustin Start Time Stop Time Status Last Admin Dose Admin Olanzapine (ZyPREXA ZYDIS) 10 mg 1X ONCE 09/27/20 02:30 09/27/20 02:31 DC 09/27/20 02:23 10 MG Allergies: Allergies: Allergies Coded Allergies Type Severity Reaction Last Updated Verified Penicillins Allergy Severe ANAPHYLAXIS 10/31/19 Yes Latex, Natural Rubber Allergy Intermediate 03/14/18 Yes Sulfa (Sulfonamide Antibiotics) Allergy Intermediate 03/14/18 Yes Physical Exam: PE: General: Awake, alert, NAD. Well Nourished, well hydrated. Cooperative HEENT: Atraumatic, EOMI, PERRL, airway patent, moist oral mucosa Neck: Supple, trachea midline Respiratory: CTA bilaterally, normal effort, no wheezing/crackles CV: RRR, no murmur, cap refill <2 GI: Soft, nondistended, nontender, no masses MSK: No obvious deformities Skin: Warm, dry, intact Neuro: A&O x3, speech NL, sensory and motor grossly intact, no focal deficits Psych: Agitated, anxious, not suicidal or homicidal Current Patient Data: Vital Signs: Vital Signs Date Time Temp Pulse Resp B/P (MAP) Pulse Ox O2 Delivery O2 Flow Rate FiO2 09/27/20 02:10 98.6 78 22 144/101 (115) 98 Room Air 98.6 EKG: EKG: [] Heart Score: C/O Chest Pain: N/A Risk Factors: Risk Factors: DM, Current or recent (<one month) smoker, HTN, HLP, family history of CAD, obesity. Risk Scores: Score 0 - 3: 2.5% MACE over next 6 weeks - Discharge Home Score 4 - 6: 20.3% MACE over next 6 weeks - Admit for Clinical Observation Score 7 - 10: 72.7% MACE over next 6 weeks - Early Invasive Strategies Radiology/Procedures: Radiology/Procedures: [] Course & Med Decision Making: Course & Med Decision Making Pertinent Labs and Imaging studies reviewed. (See chart for details) Patient is a 45-year-old male past medical history of bipolar disorder who presents to the emergency room with anxiety and agitation after being out of his medication for the last week. Patient was given Zyprexa. On reevaluation patient is feeling significantly better and would like to go home. [facility] plans [facility]. Patient does not appear to be a harm to himself or others. Patient's test results and vitals while in the ED were fully reviewed and discussed with the patient. Patient is stable and at this time does not need admission to the hospital. We have discussed strict return precautions and the importance of following up with their Primary Care Physician. Patient stated understanding and was given an opportunity to ask any questions. Patient is in agreement with plan. Corrie Disclaimer: Corrie Disclaimer: This electronic medical record was generated, in whole or in part, using a voice recognition dictation system. Departure Departure Impression: Primary Impression: Bipolar disorder Disposition: 01 DC HOME SELF CARE/HOMELESS Condition: IMPROVED Referrals: NO PCP (PCP) Patient Instructions: Manic Depression (Bipolar Disorder) Scripts Olanzapine (ZYPREXA) 10 Mg Tablet 10 MG PO DAILY for 30 Days, #30 TAB Prov: FEROZ MEAD MD 09/27/20 FEROZ MEAD MD Sep 27, 2020 02:56
[2020-09-27] MEDS ORDERED: OLAN10TA3 PO (03:11)
== END 2020-09-27 03:15 | disposition home or self-care (01) ==
LOC: ER 02:03
DX: F31.9 Bipolar disorder, unspecified (principal); F41.9 Anxiety disorder, unspecified; F43.10 Post-traumatic stress disorder, unspecified; F17.200 Nicotine dependence, unspecified, uncomplicated; Z88.0 Allergy status to penicillin; Z91.040 Latex allergy status; Z88.2 Allergy status to sulfonamides
CPT/HCPCS: 99284

== ENCOUNTER 2021-05-31 02:17 | Emergency (ER) | payer SELFPAY ==
[~2021-05-31] VITALS: Ht 180.3 cm; Wt 75.0 kg
[~2021-05-31 02:17] MED LIST changes: +DOXY-181 PO; -DOXY100C14 PO; +OLAN10TA3 PO
--- NOTE | 2021-05-31 02:29 | PHYS DOC ---
Past Medical History Past Medical History: Anxiety, Bipolar, DVT, Other Additional Past Medical Histor: PTSD, personality disorder Past Surgical History: Other Additional Past Surgical Histo: Tendons in R hand Smoking Status: Current Every Day Smoker Alcohol Use: None Drug Use: None General Adult EDM: Chief Complaint: PAIN CONTROL HPI: HPI: Patient is a 46 year old male who presents with left upper arm pain. He reports that 4 to 6 weeks ago he fell and broke his arm. He was treated for this at [facility]. He has an immobilizer/sling apparatus placed. He denies any new trauma or injury. He reports that he feels like he exacerb ated his pain by trying to lift while moving into a new apartment. He denies swelling or redness. Denies numbness or tingling. He reports that he never filled any pain medication prescriptions that he might have been given from [facility]. He and his significant other both came to the emergency department for separate issues, and they are here together. Both parties are requesting a cab pass for home. Review of Systems: Review of Systems: Constitutional: Denies fever or chills. [] Respiratory: Denies cough or shortness of breath. [] Cardiovascular: Denies chest pain or edema. [] Musculoskeletal: Left upper arm pain. Integument: Denies rash. [] Neurologic: Denies headache, focal weakness or sensory changes. [] Psychiatric: No acute mood changes reported. [] Heart Score: C/O Chest Pain: No Risk Factors: Risk Factors: DM, Current or recent (<one month) smoker, HTN, HLP, family hist ory of CAD, obesity. Risk Scores: Score 0 - 3: 2.5% MACE over next 6 weeks - Discharge Home Score 4 - 6: 20.3% MACE over next 6 weeks - Admit for Clinical Observation Score 7 - 10: 72.7% MACE over next 6 weeks - Early Invasive Strategies Allergies: Allergies: Allergies Coded Allergies Type Severity Reaction Last Updated Verified Penicillins Allergy Severe ANAPHYLAXIS 10/31/19 Yes Latex, Natural Rubber Allergy Intermediate 03/14/18 Yes Sulfa (Sulfonamide Antibiotics) Allergy Intermediate 03/14/18 Yes Physical Exam: PE: Constitutional: Well developed, well nourished, no acute distress, non-toxic appearance. [] HENT: Normocephalic, atraumatic Neck: Trachea midline Cardiovascular:Heart rate regular rhythm, no murmur [] Lungs & Thorax: Bilateral breath sounds clear to auscultation [] Skin: Warm, dry, no erythema, no rash. [] Back: No tenderness, no CVA tenderness. [] Extremities: No acute deformity noted. Tenderness to palpation of the mid and proximal left upper arm. No palpable acute deformity or crepitus. Compartments are soft. No pain or tenderness at a proportion to exam findings. Full range of motion of the left shoulder, left elbow, left forearm, left wrist, hand and digits. No warmth or erythema. No open wounds. Painful active and passive range of motion of the left arm, particularly with abduction of the shoulder and flexion of the shoulder. The shoulder joint itself is not tender or particularly painful subjectively. No wrist drop. Normal computer systems manager strength. Neurologic: Alert and oriented X 3, normal motor function, normal sensory function, no focal deficits noted. [] Psychologic: Bizarre affect. [] EKG: EKG: [] Radiology/Procedures: Radiology/Procedures: IMAGING REPORT Signed PATIENT: DORON QUILES ACCOUNT: [id number] : 1975 LOCATION: ER AGE: 46 SEX: M EXAM STATUS: REG ER ORD. PHYSICIAN: ELVIN LOCKWOOD DO REASON: pain PROCEDURE: HUMERUS LEFT XR HUMERUS_LT 2 VIEWS History: Pain Comparison: None. Technique: 2 views of left humerus. Findings: Osseous mineralization is normal. There is a comminuted fracture across the left humeral neck. Prominent adjacent soft tissue calcification may represent callus from incompletely healed fracture. Left posterior sixth and seventh rib fractures. Impression: 1. Comminuted fracture of the left humeral neck which is suspected possible acute on chronic fracture given bulky adjacent ossification, suspected callus. Electronically signed by: Joshua Holcomb MD (05/31/2021 3:24 AM) [facility] DICTATED and SIGNED BY: JOSHUA HOLCOMB MD DATE: 05/31/21 [id number] 0 Course & Med Decision Making: Course & Med Decision Making Pertinent Labs and Imaging studies reviewed. (See chart for details) IM morphine given for pain. He is placed back in his sling/immobilizer apparatus. I told him to follow-up with the orthopedic referrals he was given from [facility]. I agreed to provide a prescription for a small amount of hydrocodone for pain. His fracture does appear to be healing, no obvious evidence of acute fracture. I told him to follow-up with a primary care physician for further pain medication refills, if warranted and for further evaluation and care as well as routine health maintenance. No current indication for further imaging or invasive exams based on current presentation. Return precautions are given. Dragon Disclaimer: Corrie Disclaimer: This electronic medical record was generated, in whole or in part, using a voice recognition dictation system. Departure Departure Impression: Primary Impression: Closed fracture of left proximal humerus Qualified Codes: S42.202S - Unspecified fracture of upper end of left humerus, sequela Disposition: HOME / SELF CARE / HOMELESS Condition: STABLE Referrals: NO PCP (PCP) Patient Instructions: Humerus Fracture, Treated with Immobilization Additional Instructions: Use ibuprofen as needed for pain. Use the prescription medication for severe pain. Please contact orthopedics at [facility] to follow-up. Your fracture appears to be healing as expected. Return for acute injury or trauma, if you notice any severe swelling, skin redness, temperature 100.4 or higher, weakness or numbness or other concerns. Scripts Hydrocodone Bit/Acetaminophen (HYDROCODONE-APAP 5-325 ) 1 Tab Tablet 1 TAB PO PRN Q6HRS PRN for PAIN, #15 TAB 0 Refills Prov: ELVIN LOCKWOOD DO 05/31/21 ELVIN LOCKWOOD DO May 31, 2021 02:29
[2021-05-31] MEDS ORDERED: MORPHINE SULFATE 4 MG/ML INJ. IM ONE (02:45)
[2021-05-31 03:27] VITALS: BP 124/79
--- NOTE | 2021-05-31 03:27 | RAD ---
XR HUMERUS_LT 2 VIEWS History: Pain Comparison: None. Technique: 2 views of left humerus. Findings: Osseous mineralization is normal. There is a comminuted fracture across the left humeral neck. Promin ent adjacent soft tissue calcification may represent callus from incompletely healed fracture. Left p osterior sixth and seventh rib fractures. Impression: 1. Comminuted fracture of the left humeral neck which is suspected possible acute on chronic fractur e given bulky adjacent ossification, suspected callus. Electronically signed by: Joshua Holcomb MD (05/31/2021 3:24 AM) [facility]
[2021-05-31] MEDS ORDERED: HYDR-2761 PO (03:42)
== END 2021-05-31 03:27 | disposition home or self-care (01) ==
LOC: ER 02:17
DX: S42.202A Unspecified fracture of upper end of left humerus, initial encounter for closed fracture (principal); F17.200 Nicotine dependence, unspecified, uncomplicated; F43.10 Post-traumatic stress disorder, unspecified; Z86.718 Personal history of other venous thrombosis and embolism; Z88.0 Allergy status to penicillin; Z91.040 Latex allergy status; Z88.2 Allergy status to sulfonamides; W18.39XA Other fall on same level, initial encounter; Y93.89 Activity, other specified; Y92.89 Other specified places as the place of occurrence of the external cause; F31.9 Bipolar disorder, unspecified; Y99.8 Other external cause status
CPT/HCPCS: 73060; 96372; 99285; J2270

== ENCOUNTER 2021-08-02 00:57 | Emergency (ER) | payer SELFPAY ==
[~2021-08-02] VITALS: Ht 180.3 cm; Wt 63.6 kg
[~2021-08-02 00:57] MED LIST changes: +HYDR-2761 PO
[2021-08-02 02:00] VITALS: BP 108/72
[2021-08-02] MEDS ORDERED: cefTRIAXone IM 500 MG VIAL. IM ONE (03:00)
[2021-08-02] MEDS ORDERED: DOXYCYCLINE HYCLATE 100 MG TABLET PO ONE (03:00)
--- NOTE | 2021-08-02 03:12 | PHYS DOC ---
Past Medical History Past Medical History: Anxiety, Bipolar, DVT, Other Additional Past Medical Histor: PTSD, PERSONALITY DISORDER, CLOSED SKULL FX, PVD Past Surgical History: Other Additional Past Surgical Histo: R HAND, BILAT ARMS Smoking Status: Current Every Day Smoker Alcohol Use: None Drug Use: None General Adult EDM: Chief Complaint: PENIS PROBLEM HPI: HPI: Patient is a 46 year old male who presents with complaints of lesions on his penis. Unsure when they started. 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 There is a red estuardo with a blister at the base of his penis. States that he had a chancre, but that went away. He does not recall whether the chancre was painful or not. His current lesions are painful and do itch. Denies fever or chills. States that he has been treated for herpes in the past and he does not think that these lesions are herpes. Patient arrived via ambulance and at first he states that he is only here because he needed a ride to [place] to stay with a friend. States that he has had some other sexually transmitted disease but does not recall the name "it starts with an F" Review of Systems: Review of Systems: Constitutional: Denies fever or chills. [] Cardiovascular: Denies chest pain or edema. [] GI: Denies abdominal pain, nausea, vomiting, bloody stools or diarrhea. [] : Reports penile lesions Musculoskeletal: Denies back pain or joint pain. [] Neurologic: Denies headache, focal weakness or sensory changes. [] Psychiatric: Denies depression or anxiety. [] Heart Score: C/O Chest Pain: No Current Medications: Current Medications Medications (Trade) Dose Ordered Sig/Dustin Start Time Stop Time Status Last Admin Dose Admin Ceftriaxone Sodium (Rocephin Im) 500 mg 1X ONCE 08/02/21 03:00 08/02/21 03:01 08/02/21 02:50 500 MG Doxycycline Hyclate (Vibra-Tab) 100 mg 1X ONCE 08/02/21 03:00 08/02/21 03:01 08/02/21 02:50 100 MG Allergies: Allergies: Allergies Coded Allergies Type Severity Reaction Last Updated Verified Penicillins Allergy Severe ANAPHYLAXIS 10/31/19 Yes Latex, Natural Rubber Allergy Intermediate 03/14/18 Yes Sulfa (Sulfonamide Antibiotics) Allergy Intermediate 03/14/18 Yes Physical Exam: PE: Constitutional: non-toxic, no distress. Appears mildly intoxicated, speaking with eyes closed, slight slurring of speech. Carrying a duffel bag. HENT: Normocephalic, atraumatic [] Cardiovascular:Heart rate regular rhythm, no murmur [] Lungs & Thorax: Bilateral breath sounds clear to auscultation [] Abdomen: Bowel sounds normal, soft, no tenderness, no masses, no pulsatile masses. [] : area of erythema and tenderness to the base of the penis. shallow based ulcer overlying this area. One other area of ulceration on the underside of the penis. Ulcers are ~5mm in diameter. No spontaneous penile drainage. Skin: See Back: No tenderness, no CVA tenderness. [] Extremities: No tenderness, no cyanosis, no clubbing, ROM intact, no edema. [] Neurologic: Alert and oriented X 3, normal motor function, normal sensory function, no focal deficits noted. [] Current Patient Data: Vital Signs: Vital Signs Date Time Temp Pulse Resp B/P (MAP) Pulse Ox O2 Delivery O2 Flow Rate FiO2 08/02/21 02:00 100 18 108/72 (84) 98 Room Air 08/02/21 00:57 98.9 98.9 EKG: EKG: [] Radiology/Procedures: Radiology/Procedures: [] Course & Med Decision Making: Course & Med Decision Making Pertinent Labs and Imaging studies reviewed. (See chart for details) Patient 46-year-old male who arrived at the ED carrying a duffel bag stating that he only called EMS because he neede a ride to visit a friend who lives near [facility]. After arriving he complained of penile lesions as above. He was tested for syphillis and treated empirically for gc/chlamydia with CTX and 1 dose of doxycycline prior to requesting an AMA discharge. I offered him ongoing treatment with doxycycline (and a single dose of azithromycin) and valtrex but the patient declined Patient was oriented to person, place, time, situation, and ambulated steadily out of the emergency department against medical advice. -- Syphillis screening returned positive after patient had already left Attempted to call patient back to ED with provided phone number, the number has been disconnected. Unfortunately, no other contact information was provided. Patient has a penicillin allergy. Doxycycline 14 days sent to pharmacy in hopes they can contact him about an available Rx. Corrie Disclaimer: Corrie Disclaimer: This electronic medical record was generated, in whole or in part, using a voice recognition dictation system. Departure Departure Impression: Primary Impression: Acquired syphilis Additional Impressions: Penile lesion Left against medical advice Disposition: LEFT AGAINST MEDICAL ADVICE Condition: STABLE Referrals: NO PCP (PCP) Scripts Doxycycline Hyclate (DOXYCYCLINE HYCLATE) 100 Mg Capsule 1 CAP PO BID for 14 Days, #28 CAP 0 Refills Prov: TIP LOVE MD 08/02/21 TIP LOVE MD Aug 02, 2021 03:12
[2021-08-02] MEDS ORDERED: DOXY100C3 PO (03:54)
[2021-08-02] MEDS ORDERED: DOXY100T PO (08:36)
== END 2021-08-02 03:02 | disposition left against medical advice (07) ==
LOC: ER 00:57
DX: A53.9 Syphilis, unspecified (principal); N48.89 Other specified disorders of penis; F31.9 Bipolar disorder, unspecified; F17.200 Nicotine dependence, unspecified, uncomplicated; F43.10 Post-traumatic stress disorder, unspecified; Z86.718 Personal history of other venous thrombosis and embolism; Z88.0 Allergy status to penicillin; Z91.040 Latex allergy status; Z88.2 Allergy status to sulfonamides
CPT/HCPCS: 86592; 96372; 99283; J0696

== ENCOUNTER 2021-08-02 07:52 | Emergency (ER) | payer SELFPAY ==
[~2021-08-02] VITALS: Ht 172.7 cm; Wt 72.7 kg
[~2021-08-02 07:52] MED LIST changes: +DOXY100C3 PO
--- NOTE | 2021-08-02 08:05 | PHYS DOC ---
Past Medical History Past Medical History: Anxiety, Bipolar, DVT, Other Additional Past Medical Histor: PTSD, PERSONALITY DISORDER, CLOSED SKULL FX, PVD Past Surgical History: Other Additional Past Surgical Histo: R HAND, BILAT ARMS Smoking Status: Current Every Day Smoker Alcohol Use: None Drug Use: Methamphetamine General Adult HPI: HPI: Patient is a 46 year old male who presents via EMS for reported back pain and feeling cold, while he was hanging out outside of a gas station. The patient was here a couple of hours ago, and he was seen by the overnight physician, Dr. Baca, and at that time the patient had presented with concern for penile lesions and sexually transmitted infection. The patient syphilis returned positive, though the patient had elected to elope/leave AMA prior to this returning. The patient was attempted to be contacted by nighttime physician, but the number was non functioning. The plan was to prescribe him doxycycline to treat his syphilis, since the patient has a penicillin allergy. The patient denies any acute injury or trauma. He denies chest pain, dyspnea, abdominal pain, nausea or vomiting. He denies dysuria. The patient had already been empi rically treated for gonorrhea and chlamydia while he was in the ER earlier today. I informed him that his syphilis test returned positive. He indicates that he has had syphilis many times in the past. 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 He denies any acute injury or trauma to his back. He reportedly has a history of back pain issues. He is a relatively poor historian, he is relatively argumentative, verbally confrontational with the nursing staff and with me. He repeatedly demands to be taken home, though he gives multiple different addresses for his home. He reports that he wants us to call one of his friends to come pick him up, though he is unable to provide any phone numbers for these reported friends. He admits to using "all the drugs" and specifically reports that he uses methamphetamine. He denies alcohol use. Regarding his back pain, he denies numbness or tingling or motor weakness. He denies urinary incontinence. He denies any history of IV drug use, he denies any history of fever or chills. He also has a longstanding history of chronic back pain and reported sciatica. He denies any acute changes in symptoms in this regard today. Review of Systems: Review of Systems: Constitutional: Denies fever or chills. [] Respiratory: Denies cough or shortness of breath. [] Cardiovascular: Denies chest pain or edema. [] GI: Denies abdominal pain, nausea, vomiting, or diarrhea Musculoskeletal: Reports low back pain Neurologic: Denies headache, focal weakness or sensory changes. [] Psychiatric: Polysubstance abuse, mood disorder, personality disorder Heart Score: C/O Chest Pain: No Risk Factors: Risk Factors: DM, Current or recent (<one month) smoker, HTN, HLP, family history of CAD, obesity. Risk Scores: Score 0 - 3: 2.5% MACE over next 6 weeks - Discharge Home Score 4 - 6: 20.3% MACE over next 6 weeks - Admit for Clinical Observation Score 7 - 10: 72.7% MACE over next 6 weeks - Early Invasive Strategies Allergies: Allergies: Allergies Coded Allergies Type Severity Reaction Last Updated Verified Penicillins Allergy Severe ANAPHYLAXIS 10/31/19 Yes Latex, Natural Rubber Allergy Intermediate 03/14/18 Yes Sulfa (Sulfonamide Antibiotics) Allergy Intermediate 03/14/18 Yes Physical Exam: PE: Constitutional: Well developed, well nourished, disheveled, carrying multiple belongings in a duffel bag with him, appears older than stated age, he is nontoxic appearing, he is intoxicated appearing HENT: Normocephalic, atraumatic Eyes: Conjunctiva normal, no discharge. Sclera are anicteric. Neck: Trachea midline. Cardiovascular:Heart rate regular rhythm, +2 radial pulses bilateral Lungs & Thorax: Bilateral breath sounds clear to auscultation [] Abdomen: Abdomen soft, nondistended, nontender to palpate Skin: Warm, dry, intact, skin is somewhat unkempt Back: No deformity of the back. Full range of motion, he is in admittedly wildly flailing himself about the ED gurney, with seemingly no evidence of discomfort in doing so. No obvious step-offs, no evidence of abuse trauma. Extremities: No tenderness, no cyanosis, no clubbing, ROM intact, no edema. No limb deformity. Neurologic: He is intoxicated appearing, though he is awake, alert, and oriented to person, place, he knows the month and year but not exact date, he briskly moves all 4 extremities equally, sensation is grossly intact, no facial asymmetry, speech is fluent and pressured, content of speech involves multiple curse words Psychologic: Bizarre affect, appears intoxicated, intermittently yelling and cursing at staff. Denies SI or HI. EKG: EKG: [] Radiology/Procedures: Radiology/Procedures: [] Course & Med Decision Making: Course & Med Decision Making I reviewed the patient's previous chart and laboratory exams from his ED visit earlier today. I ordered a dose of p.o. ibuprofen for pain as well as a first dose of p.o. doxycycline. He will be given a paper prescription for doxycycline, and I explained that is imperative that he takes the full course of this. He admits to having had syphilis previously and is upset that it "came back." I explained that he should not engage in any sexual activity, should notify all sexual partners, should always use protection and practice safe sex practices. He is given resources for outpatient follow-up and routine primary care services. There is no current indication for further invasive exams, imagi ng labs at this time based on current clinical presentation. He will be discharged from the ED, strict return precautions are given. Dragon Disclaimer: Dragon Disclaimer: This electronic medical record was generated, in whole or in part, using a voice recognition dictation system. Departure Departure Impression: Primary Impression: Acquired syphilis Additional Impressions: Low back pain Amphetamine abuse Disposition: HOME / SELF CARE / HOMELESS Condition: STABLE Referrals: NO PCP (PCP) Patient Instructions: Back Pain, Adult, Sexually Transmitted Disease, Syphilis Detection Test Additional Instructions: It is imperative that you take the full course of the antibiotics, as directed. Do not engage in any sexual activity whatsoever until you have completed your course of antibiotics, make sure you notify all sexual partners that you have syphilis. You may require repeat syphilis testing to ensure that you do not need another round of antibiotics. You are being given resources to establish care with a primary care physician for routine care and for follow-up of this problem. You may take [id number] Tylenol or ibuprofen for your back pain. Return for any acute injury or trauma, if you develop fever of 100.4 or higher, if you develop any focal motor weakness, paralysis, if you are incontinent of urine or stool or for other concerns. Scripts Doxycycline Hyclate (DOXYCYCLINE HYCLATE) 100 Mg Tablet 1 TAB PO BID for 14 Days, #28 TAB Prov: ELVIN LOCKWOOD DO 08/02/21 ELVIN LOCKWOOD DO Aug 02, 2021 08:05
[2021-08-02 08:28] VITALS: BP 140/94
[2021-08-02] MEDS ORDERED: IBUPROFEN 400 MG TABLET. PO ONE (08:30)
[2021-08-02] MEDS ORDERED: DOXYCYCLINE HYCLATE 100 MG TABLET PO ONE (08:30)
[2021-08-02] MEDS ORDERED: DOXY100T PO (08:36)
== END 2021-08-02 09:04 | disposition home or self-care (01) ==
LOC: ER 07:52
DX: A53.9 Syphilis, unspecified (principal); M54.50 Low back pain, unspecified; F15.10 Other stimulant abuse, uncomplicated; F31.9 Bipolar disorder, unspecified; F43.10 Post-traumatic stress disorder, unspecified; F17.200 Nicotine dependence, unspecified, uncomplicated; Z86.718 Personal history of other venous thrombosis and embolism; Z88.0 Allergy status to penicillin; Z88.2 Allergy status to sulfonamides; Z91.040 Latex allergy status
CPT/HCPCS: 99283

== ENCOUNTER 2021-11-23 20:35 | Emergency (ER) | payer SELFPAY ==
[~2021-11-23] VITALS: Ht 180.3 cm; Wt 63.6 kg
[~2021-11-23 20:35] MED LIST changes: +DOXY100T PO
[2021-11-23] MEDS ORDERED: KETOROLAC 30 MG/ML VIAL. IM ONE (22:30)
[2021-11-23] MEDS ORDERED: ACETAMINOPHEN 325 MG TABLET. PO ONE (22:30)
[2021-11-23] MEDS ORDERED: DIPHTH,PERTUSS(ACELL),TET TOX 0.5 ML DISP.SYRIN. VAX IM ONE (23:30)
[2021-11-23] MEDS ORDERED: GABAPENTIN 300 MG CAPSULE. PO ONE (23:30)
--- NOTE | 2021-11-24 00:30 | RAD ---
Exam: Bilateral feet 2 views INDICATION: Foot pain, pain TECHNIQUE: Frontal and lateral views of the right and left foot Comparisons: None FINDINGS: Right foot: Chronic appearing fracture deformity at the fifth metatarsal. There is overlying soft tissue swelling . Joint spaces are well-maintained. Left foot: Fracture lucencies at the fourth and fifth metatarsals. Overlying soft tissue swelling. Joint spaces well-maintained. IMPRESSION: 1. Fracture lucencies at the fourth and fifth left metatarsals. 2. Chronic appearing fracture lucency at the right fifth metatarsal. 3. In the setting of acute trauma consider CT to better evaluate for acute fracture Electronically signed by: Wendy Joe MD (11/24/2021 12:28 AM) [facility]
[2021-11-24 00:44] VITALS: BP 116/87
[2021-11-24] MEDS ORDERED: ACET325T9 PO (01:10)
[2021-11-24] MEDS ORDERED: IBUP-1007 PO ×2 (01:10→17:44)
--- NOTE | 2021-11-24 02:19 | PHYS DOC ---
Past Medical History Past Medical History: Anxiety, Bipolar, DVT, Other Additional Past Medical Histor: PTSD, PERSONALITY DISORDER, CLOSED SKULL FX, PVD Past Surgical History: Other Additional Past Surgical Histo: R HAND, BILAT ARMS Smoking Status: Current Every Day Smoker Alcohol Use: Occasionally Drug Use: Methamphetamine General Adult EDM: Chief Complaint: LOWER EXT PAIN HPI: HPI: 46 yo, homeless, meth abuse, distant history of foot injury, known left lower extremity DVT and baseline swelling of left foot, presents with bilateral foot pain x months. Patient endorses recent meth use. Endorses burning/tingling pain of bilateral feet. No new trauma. Review of Systems: Review of Systems: Constitutional: Denies fever or chills. [] Eyes: Denies change in visual acuity. [] HENT: Denies nasal congestion or sore throat. [] Respiratory: Denies cough or shortness of breath. [] Cardiovascular: Denies chest pain or edema. [] GI: Denies abdominal pain, nausea, vomiting, bloody stools or diarrhea. [] : Denies dysuria. [] Musculoskeletal: +bilateral foot pain, Denies back pain or joint pain. [] Integument: Denies rash. [] Neurologic: Denies headache, focal weakness or sensory changes. [] Endocrine: Denies polyuria or polydipsia. [] Lymphatic: Denies swollen glands. [] Psychiatric: Denies depression or anxiety. [] Heart Score: C/O Chest Pain: No Risk Factors: Risk Factors: DM, Current or recent (<one month) smoker, HTN, HLP, family history of CAD, obesity. Risk Scores: Score 0 - 3: 2.5% MACE over next 6 weeks - Discharge Home Score 4 - 6: 20.3% MACE over next 6 weeks - Admit for Clinical Observation Score 7 - 10: 72.7% MACE over next 6 weeks - Early Invasive Strategies Current Medications: Current Medications Medications (Trade) Dose Ordered Sig/Dustin Start Time Stop Time Status Last Admin Dose Admin Acetaminophen (Tylenol) 650 mg 1X ONCE 11/23/21 22:30 11/23/21 22:31 DC 11/24/21 00:47 650 MG Diphtheria/ Tetanus/Acell Pertussis (Boostrix) 0.5 ml ONCE ONCE 11/23/21 23:30 11/23/21 23:31 DC Gabapentin (Neurontin) 300 mg 1X ONCE 11/23/21 23:30 11/23/21 23:31 DC 11/24/21 00:47 300 MG Ketorolac Tromethamine (Toradol 30mg Vial) 30 mg 1X ONCE 11/23/21 22:30 11/23/21 22:31 DC 11/24/21 00:47 30 MG Allergies: Allergies: Allergies Coded Allergies Type Severity Reaction Last Updated Verified Penicillins Allergy Severe ANAPHYLAXIS 08/02/21 Yes Sulfa (Sulfonamide Antibiotics) Allergy Severe anaphylaxis 08/02/21 Yes Latex, Natural Rubber Allergy Intermediate 11/23/21 Yes Physical Exam: PE: Constitutional: Well developed, well nourished, no acute distress, non-toxic appearance. [] HENT: Normocephalic, atraumatic, bilateral external ears normal, oropharynx moist, no oral exudates, nose normal. [] Eyes: PERRLA, EOMI, conjunctiva normal, no discharge. [] Neck: Normal range of motion, no tenderness, supple, no stridor. [] Cardiovascular:Heart rate regular rhythm, no murmur [] Lungs & Thorax: Bilateral breath sounds clear to auscultation [] Abdomen: Bowel sounds normal, soft, no tenderness, no masses, no pulsatile masses. [] Skin: Warm, dry, no erythema, no rash. [] Back: No tenderness, no CVA tenderness. [] Extremities: +bilateral feet trench foot, noted LLE edema and chronic skin color changes which patient states is his baseline; no palpable tenderness of L foot or calf, full ROM is intact and DP pulses intact; no cyanosis, no clubbing Neurologic: Alert and oriented X 3, normal motor function, normal sensory function, no focal deficits noted. [] Psychologic: Affect normal, judgement normal, mood normal. [] Current Patient Data: Vital Signs: Vital Signs Date Time Temp Pulse Resp B/P (MAP) Pulse Ox O2 Delivery O2 Flow Rate FiO2 11/24/21 00:44 101 116/87 (97) 97 Room Air 11/23/21 21:45 98.6 17 98.6 EKG: EKG: [] Radiology/Procedures: Radiology/Procedures: [] Course & Med Decision Making: Course & Med Decision Making Pertinent Labs and Imaging studies reviewed. (See chart for details) Additional Social History: PMD from non-affiliated facility. Patient Lives at home. Family History: Non-pertinent to today's complaint. Nursing Notes Reviewed Previous Medical Records requested via [employer] Web: Reviewed by me. EMERGENCY DEPARTMENT COURSE/ MEDICAL DECISION MAKING: I examined the patient, evaluated and addressed patient's chief complaint. High suspicion for trench foot given wet socks and shoes and homeless. Foot xrays showing chronic fractures. Patient denies any recent trauma. Patient endorses known LLE DVT and chronic venous skin changes with L foot swelling with is baseline, no acute changes. Low suspicion for cellulitis or osteomyelitis. The patient was treated with toradol, tylenol, gabapentin On re-assessment, patient feels much better. Also suspicious for malingering given patient verbally abusive towards nurses and states he just wants a sandwich. Given new clean socks, discussed keeping feet dry. Stable for dc home with ibuprofen and tylenol PRN and routine pmd f/u. Return precautions given. The patient understands that todays Emergency Department evaluation does not represent a comprehensive medical workup, and it is impossible to diagnose all possible illnesses from a single Emergency Department visit. The patient verbalized understanding that it is absolutely necessary to have follow-up with regular primary care physician within 1-2 days for more detailed workup and continued exam. I explained the findings and plan to the patient, who expressed verbal understanding and agreed with plan for discharge and follow up. The patient was given after care instructions and welcomed to return to the ED for re-evaluation in 8-12 hours, especially for any new or worsening symptoms. Patient's blood pressure was elevated (>120/80) but appears stable without evidence of end organ damage, malignant hypertension, hypertensive emergency or urgency. The patient was counseled about the risks of hypertension and urged to pursue outpatient monitoring and therapy within a week with their primary care physician. The patient was stable at the time of discharge. DIAGNOSTIC IMPRESSION: 1. trench foot 2. chronic foot fractures 3. homeless 4. substance abuse DISPOSITION: Disposition: Discharge Home. Condition: Improved Follow-Up: PMD Prescriptions: ibuprofen, tylenol Return to the Emergency Department for new or worsening symptoms. [place] Disclaimer: Dragon Disclaimer: This electronic medical record was generated, in whole or in part, using a voice recognition dictation system. Departure Departure Impression: Primary Impression: Homeless Additional Impressions: Substance abuse Foot pain Trench feet Chronic fracture Disposition: HOME / SELF CARE / HOMELESS Condition: STABLE Patient Instructions: Pain, Neuropathic, Substance Abuse-Brief Additional Instructions: Please follow up with your primary care provider. Scripts Acetaminophen (TYLENOL) 325 Mg Tablet 1-2 TAB PO QID, #30 TAB 2 Refills Prov: KATIANA HENDERSON MD 11/24/21 Ibuprofen (IBUPROFEN) 600 Mg Tablet 600 MG PO PRN Q6HRS PRN for INFLAMMATION, #20 TAB Prov: KATIANA HENDERSON MD 11/24/21 KATIANA HENDERSON MD November 24, 2021 02:19
== END 2021-11-24 01:16 | disposition home or self-care (01) ==
LOC: ER 20:35
DX: S92.902A Unspecified fracture of left foot, initial encounter for closed fracture (principal); S92.901A Unspecified fracture of right foot, initial encounter for closed fracture; T69.022A Immersion foot, left foot, initial encounter; T69.021A Immersion foot, right foot, initial encounter; F31.9 Bipolar disorder, unspecified; F17.200 Nicotine dependence, unspecified, uncomplicated; F15.10 Other stimulant abuse, uncomplicated; F43.10 Post-traumatic stress disorder, unspecified; Z59.00 Homelessness unspecified; Z86.718 Personal history of other venous thrombosis and embolism; Z88.0 Allergy status to penicillin; Z88.2 Allergy status to sulfonamides; Z91.040 Latex allergy status; X58.XXXA Exposure to other specified factors, initial encounter; Y93.89 Activity, other specified; Y92.89 Other specified places as the place of occurrence of the external cause; Y99.8 Other external cause status
CPT/HCPCS: 73620; 96372; 99283; J1885

== ENCOUNTER 2021-11-24 15:29 | Emergency (ER) | payer SELFPAY ==
[~2021-11-24] VITALS: Ht 180.3 cm; Wt 68.0 kg
[~2021-11-24 15:29] MED LIST changes: +ACET325T9 PO
[2021-11-24 17:30] VITALS: BP 131/79
[2021-11-24] MEDS ORDERED: IBUP-1007 PO (17:44)
[2021-11-24] MEDS ORDERED: HYDROcodone/APAP 5/325MG 1 TAB TABLET PO ONE (17:45)
--- NOTE | 2021-11-24 17:45 | PHYS DOC ---
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 Patient reports he is homeless and walks a lot. Patient reports this is "an overuse injury ". Patient denies other physical complaints or physical concerns. Review of Systems: Review of Systems: 14 body systems of review of systems have been reviewed. See HPI for pertinent positives and negative responses, otherwise all other systems are negative, nonpertinent or noncontributory. Constitutional: Negative except as outlined in HPI above. Skin: Negative except as outlined in HPI above. Eyes: Negative except as outlined in HPI above. HENT: Negative except as outlined in HPI above. Respiratory: Negative except as outlined in HPI above. Cardiovascular: Negative except as outlined in HPI above. GI: Negative except as outlined in HPI above. : Negative except as outlined in HPI above. Musculoskeletal: Negative except as outlined in HPI above. Integument: Negative except as outlined in HPI above. Neurologic: Negative except as outlined in HPI above. Endocrine: Negative except as outlined in HPI above. Lymphatic: Negative except as outlined in HPI above. Psychiatric: Negative except as outlined in HPI above. Heart Score: C/O Chest Pain: No Risk Factors: Risk Factors: DM, Current or recent (<one month) smoker, HTN, HLP, family history of CAD, obesity. Risk Scores: Score 0 - 3: 2.5% MACE over next 6 weeks - Discharge Home Score 4 - 6: 20.3% MACE over next 6 weeks - Admit for Clinical Observation Score 7 - 10: 72.7% MACE over next 6 weeks - Early Invasive Strategies Allergies: Allergies: Allergies Coded Allergies Type Severity Reaction Last Updated Verified Penicillins Allergy Severe ANAPHYLAXIS 08/02/21 Yes Sulfa (Sulfonamide Antibiotics) Allergy Severe anaphylaxis 08/02/21 Yes Latex, Natural Rubber Allergy Intermediate 11/23/21 Yes Physical Exam: PE: Constitutional: Well developed, well nourished, disheveled in appearance, no acute distress, non-toxic appearance. 46-year-old male in no apparent distress. HENT: Normocephalic, atraumatic. Eyes: Conjunctiva normal, no discharge. Neck: Normal range of motion, no stridor. Cardiovascular: No cyanosis appreciated, distal cap refill less than 2 seconds. Lungs & Thorax: Patient is in no respiratory distress, no audible adventitious lung sounds appreciated. Abdomen: Nontender, no abnormalities noted. Skin: Warm, dry, no erythema, no rash. Back: No tenderness, no deformities. Extremities: No tenderness, no cyanosis, no clubbing, ROM intact, no edema. Except for bilateral feet, pain to palpation along all structures of feet, there is no swelling, no erythema, no crepitus, no deformities present, bilateral dorsalis pedis/posterior tibial pulses equal bilateral, bilateral lower extrem ity cap refill is less than 2 seconds. There is no signs of infectious process appreciated, no visual signs of traumatic injury. Neurologic: Alert and oriented X 3, normal motor function, normal sensory function, no focal deficits noted. Psychologic: Affect normal, judgement normal, mood normal. Current Patient Data: Vital Signs: Vital Signs Date Time Temp Pulse Resp B/P (MAP) Pulse Ox O2 Delivery O2 Flow Rate FiO2 11/24/21 15:38 98.1 108 20 116/87 (97) 95 Room Air 98.1 EKG: EKG: [] Radiology/Procedures: Radiology/Procedures: [] Course & Med Decision Making: Course & Med Decision Making Pertinent Labs and Imaging studies reviewed. (See chart for details) 46-year-old male, vital signs reviewed, presents to the emergency department concerning bilateral foot pain for the past several months. Physical examination is unremarkable. Suspicious for malingering to find a ride to a residence as this is currently patient's main concern to obtaining a cab voucher. We will give p.o. pain medication, discharge patient to home, follow- up with primary care soon, patient gave verbal understanding of and is amenable to ED discharge planning. Discussed with the patient all findings and diagnostic testing as well as the need to follow-up with their primary care provider for further evaluation and treatment or return to the ED if any new or worsening symptoms. Strict return precautions were also discussed at length, the patient voiced understanding and agreement with the discharge planning. The patient was nontoxic in appearance, in no apparent distress, and hemodynamically stable at the time of disposition. Corrie Disclaimer: Corrie Disclaimer: This electronic medical record was generated, in whole or in part, using a voice recognition dictation system. Departure Departure Impression: Primary Impression: Foot pain Qualified Codes: M79.671 - Pain in right foot; M79.672 - Pain in left foot Disposition: HOME / SELF CARE / HOMELESS Condition: GOOD Referrals: NO PCP (PCP) Additional Instructions: You were seen today in the emergency department for foot pain. You were given pain medication for this. As we discussed, please rest your feet to assist with pain control, you may use [id number] Tylenol and or Motrin for ongoing pain relief. Please return to the emergency department for worsening symptoms or other concerns. Thank you for visiting our Emergency Department. It was a pleasure taking care of you today in the emergency department and we appreciate you trusting us with your care. If any additional problems come up don't hesit ate to return to visit us. Please follow up with your primary care provider so they can plan additional care if needed and know about the problem that you had. If symptoms worsen come back to the Emergency Department. Any concerning symptoms that start such as chest pain, shortness of air, weakness or numbness on one side of the body, running high fevers or any other concerning symptoms return to the ER. Scripts Ibuprofen (IBUPROFEN) 600 Mg Tablet 600 MG PO PRN Q6HRS PRN for INFLAMMATION, #20 TAB 0 Refills Prov: ZAMZAM FRIEDMAN APRN 11/24/21 ZAMZAM FRIEDMAN APRN November 24, 2021 17:45
== END 2021-11-24 17:54 | disposition home or self-care (01) ==
LOC: ER 15:29
DX: M79.671 Pain in right foot (principal); M79.672 Pain in left foot; F17.200 Nicotine dependence, unspecified, uncomplicated; F31.9 Bipolar disorder, unspecified; Z86.718 Personal history of other venous thrombosis and embolism; Z88.0 Allergy status to penicillin; Z88.2 Allergy status to sulfonamides; Z91.040 Latex allergy status
CPT/HCPCS: 99282; 99283